=== PATIENT | female | born 1980 | race Caucasian/White ===

== ENCOUNTER 2017-04-07 13:45 | Emergency (ER) | payer SELFPAY ==
[~2017-04-07] VITALS: Ht 167.6 cm; Wt 63.5 kg
[2017-04-07] MEDS ORDERED: ZYRTEC10 MG ORAL (13:58)
[2017-04-07 14:11] LABS: BASOPHILS % (AUTO) 0.8 % (0.0-2.0); EOSINOPHILS % (AUTO) 0.2 % (0.0-3.0); LYMPHOCYTES % (AUTO) 17.4 % (20.0-45.0); MEAN CORPUSCULAR HEMOGLOBIN 30.9 PG (27.0-31.0); MEAN CORPUSCULAR HGB CONC 33.3 G/DL (32.0-36.0); MEAN CORPUSCULAR VOLUME 93 FL (80-99); MEAN PLATELET VOLUME 5.8 FL (6.5-10.1); MONOCYTES % (AUTO) 6.9 % (1.0-10.0); NEUTROPHILS % (AUTO) 74.6 % (45.0-75.0); PLATELET COUNT 423 K/UL (150-450); WHITE BLOOD COUNT 12.1 K/UL (4.8-10.8)
[2017-04-07 14:44] LABS: ANION GAP 12 mmol/L (5-15); CALCIUM 9.8 MG/DL (8.5-10.1); CARBON DIOXIDE 27 MMOL/L (21-32); CHLORIDE 101 MMOL/L (98-107); CREATININE 0.9 MG/DL (0.55-1.30); GLOMERULAR FILTRATION RATE > 60 mL/min (>60); POTASSIUM 3.7 MMOL/L (3.5-5.1); SODIUM 139 MMOL/L (136-145)
[2017-04-07 14:55] LABS: ALANINE AMINOTRANSFERASE 31 U/L (12-78); ASPARTATE AMINO TRANSFERASE 31 U/L (15-37); TOTAL PROTEIN 9.8 G/DL (6.4-8.2)
[2017-04-07 14:56] LABS: ACETAMINOPHEN < 2 MCG/ML (10-30)
[2017-04-07 14:57] LABS: ALCOHOL < 3 mg/dL; BILIRUBIN,DIRECT 0.3 MG/DL (0.0-0.3)
--- NOTE | 2017-04-07 15:05 | Emergency Room Report ---
History of Present Illness General Chief Complaint: Behavioral Complaint Source: Patient, Family Member, EMS Present Illness HPI The patient is a 36-year-old female who denies any medical history brought in by ambulance with police for danger to self. They state that the patient attempted to enter the police vehicle and state that the patient was hearing voices which directed her to do so. They have placed the patient on a 5150. The patient states that she heard a voice from God telling her to do so. She states that she was being told to blasts the police officers by telling them something nice and felt compelled to enter the vehicle. She denies any psychiatric history. The mother is with the patient at this time as well and denies diagnosed psychiatric history. The patient does not take any medications. She does admit to marijuana use. She denies any complaints Allergies: Coded Allergies: No Known Allergies (Unverified , 04/07/17) Patient History Past Medical History: see triage record Pertinent Family History: none Reviewed Nursing Documentation: PMH: Agreed, PSxH: Agreed Nursing Documentation-PMH History Of Psychiatric Problem: Yes Review of Systems All Other Systems: negative except mentioned in HPI Physical Exam Vital Signs Date Time Temp Pulse Resp B/P (MAP) Pulse Ox O2 Delivery O2 Flow Rate FiO2 04/07/17 13:48 98.4 90 20 137/97 99 Room Air Sp02 EP Interpretation: reviewed, normal General Appearance: no apparent distress, alert, GCS 15, non-toxic Head: normocephalic, atraumatic Eyes: bilateral eye normal inspection, bilateral eye PERRL ENT: hearing grossly normal, normal pharynx, no angioedema, normal voice Neck: full range of motion, supple/symm/no masses Respiratory: chest non-tender, lungs clear, normal breath sounds, speaking full sentences Cardiovascular #1: regular rate, rhythm, no edema Gastrointestinal: normal bowel sounds, non tender, soft, non-distended, no guarding, no rebound Genitourinary: normal inspection, no CVA tenderness Musculoskeletal: back normal, gait/station normal, normal range of motion, non- tender Neurologic: alert, oriented x3, responsive, motor strength/tone normal, sensory intact, speech normal Psychiatric: judgement/insight normal, memory normal, no suicidal/homicidal ideation, no delusions - The patient has flight of thoughts and states that she is hearing voices Skin: normal color, no rash, warm/dry, well hydrated Lymphatic: no adenopathy Medical Decision Making PA Attestation Dr. Corrigan is my supervising physician. Patient management was discussed with my supervising physician Diagnostic Impression: Primary Impression: Behavioral disorder ER Course The patient is a 36-year-old female presenting for behavioral disorder. On 5150 Differential diagnoses considered but not limited to suicidal ideation, homicidal ideation, depression, psychosis, drug use PE: No apparent distress. A&Ox3 The patient states that she is hearing voices but is unable to say who is speaking or what is being said. She denies any suicidal ideation, self-harm, or homicidal ideation PERRL. EOMI. RRR. Lungs CTA bilat Abdomen: Normal appearance. Non distended. No ecchymosis. Normal BS. Non TTP. No McBurney point tenderness. No guarding. Skin is warm and dry, no rashes. Labs show minimal leukocytosis. Otherwise unremarkable Positive for marijuana The patient is resting comfortably. She is medically cleared. She will be transferred to [facility] Laboratory Tests Test 04/07/17 13:50 White Blood Count 12.1 K/UL (4.8-10.8) H Red Blood Count 4.90 M/UL (4.20-5.40) Hemoglobin 15.2 G/DL (12.0-16.0) Hematocrit 45.5 % (37.0-47.0) Mean Corpuscular Volume 93 FL (80-99) Mean Corpuscular Hemoglobin 30.9 PG (27.0-31.0) Mean Corpuscular Hemoglobin Concent 33.3 G/DL (32.0-36.0) Red Cell Distribution Width 11.0 % (11.6-14.8) L Platelet Count 423 K/UL (150-450) Mean Platelet Volume 5.8 FL (6.5-10.1) L Neutrophils (%) (Auto) 74.6 % (45.0-75.0) Lymphocytes (%) (Auto) 17.4 % (20.0-45.0) L Monocytes (%) (Auto) 6.9 % (1.0-10.0) Eosinophils (%) (Auto) 0.2 % (0.0-3.0) Basophils (%) (Auto) 0.8 % (0.0-2.0) Urine HCG, Qualitative Negative Sodium Level 139 MMOL/L (136-145) Potassium Level 3.7 MMOL/L (3.5-5.1) Chloride Level 101 MMOL/L (98-107) Carbon Dioxide Level 27 MMOL/L (21-32) Anion Gap 12 mmol/L (5-15) Blood Urea Nitrogen 10 mg/dL (7-18) Creatinine 0.9 MG/DL (0.55-1.30) Estimate Glomerular Filtration Rate > 60 mL/min (>60) Glucose Level 92 MG/DL (74-106) Calcium Level 9.8 MG/DL (8.5-10.1) Total Bilirubin 1.7 MG/DL (0.2-1.0) H Direct Bilirubin 0.3 MG/DL (0.0-0.3) Aspartate Amino Transferase (AST) 31 U/L (15-37) Alanine Aminotransferase (ALT) 31 U/L (12-78) Alkaline Phosphatase 59 U/L (46-116) Total Protein 9.8 G/DL (6.4-8.2) H Albumin 5.0 G/DL (3.4-5.0) Globulin 4.8 g/dL Albumin/Globulin Ratio 1.0 (1.0-2.7) Salicylates Level 1.5 ug/mL (2.8-20) L Urine Opiates Screen Negative (NEGATIVE) Acetaminophen Level < 2 MCG/ML (10-30) L Urine Barbiturates Screen Negative (NEGATIVE) Phencyclidine (PCP) Screen Negative (NEGATIVE) Urine Amphetamines Screen Negative (NEGATIVE) Urine Benzodiazepines Screen Negative (NEGATIVE) Urine Cocaine Screen Negative (NEGATIVE) Urine Marijuana (THC) Screen Positive (NEGATIVE) H Serum Alcohol < 3 mg/dL Lab Results Impression There is mild leukocytosis. Otherwise unremarkable Last Vital Signs Date Time Temp Pulse Resp B/P (MAP) Pulse Ox O2 Delivery O2 Flow Rate FiO2 04/07/17 13:48 98.4 90 20 137/97 99 Room Air Status: improved Disposition: XFER TO PSYCH HOSP/UNIT Condition: Stable Referrals: NOT CHOSEN IPA/,REFERRING (PCP) ELVIS GARCIA Apr 07, 2017 15:05
[2017-04-07 16:08] VITALS: BP 146/93
[2017-04-07] MEDS ORDERED: LORazepam 1mg tab ONE (17:02)
[2017-04-07] MEDS ORDERED: LORazepam Inj 2mg/ml 1ml ONE (17:03)
[2017-04-07] MEDS ORDERED: LORazepam Inj 2mg/ml 1ml IM ONE (17:15)
[2017-04-07 19:05] VITALS: BP 128/94
[2017-04-07 21:40] VITALS: BP 128/94
== END 2017-04-07 21:50 ==
LOC: EDBD 13:45 → EDSEX 13:45 → EMR 14:55
DX: F91.9 Conduct disorder, unspecified (principal)
CPT/HCPCS: 36415; 80053; 80307; 81025; 82248; 85025; 96372; 99285; G0480; 80329